=== PATIENT | female | born 1970 | race Caucasian/White ===

== ENCOUNTER 2016-12-31 12:48 | Day surgery (SDC) | payer OTHER ==
[~2016-12-31] VITALS: Ht 152.4 cm; Wt 55.7 kg
[2016-12-31] VITALS (14 sets, daily range): BP systolic 123–163; BP diastolic 59–89; PULSE 82–110; RESP 13–33; Ht 152.4 cm; Wt 55.7 kg
[2016-12-31] MEDS ORDERED: POLYMYXIN/BACITRACIN 1L IRRIG ONE (15:28)
[2016-12-31] MEDS ORDERED: BUPIVACAINE 0.5% (SDV) 30 ML INJ ONE (15:28)
[2016-12-31] MEDS ORDERED: LIDOCAINE 1% (STERILE-PAK) 30 ML INJ ONE (15:28)
--- NOTE | 2016-12-31 16:22 | HPN ---
Date/Time of Note Date/Time of Note DATE: 12/31/16 TIME: 16:22 Interval H&P Admission Note Pt. seen H&P reviewed: No system changes YORDY MADDOX Dec 31, 2016 16:22
[2016-12-31] MEDS ORDERED: ROCURONIUM 50 MG INJ ONE (16:23)
[2016-12-31] MEDS ORDERED: NEOSTIGMINE 3 MG/3 ML SYRINGE ONE (16:23)
[2016-12-31] MEDS ORDERED: CEFAZOLIN 1 GM INJ ONE (16:23)
[2016-12-31] MEDS ORDERED: PROPOFOL 20 ML ONE (16:23)
[2016-12-31] MEDS ORDERED: FENTAnyl 50 MCG/ML VIAL ONE (16:23)
[2016-12-31] MEDS ORDERED: MIDAZOLAM 1 MG/ML 2 ML INJ ONE (16:23)
[2016-12-31] MEDS ORDERED: GLYCOPYRROLATE 0.4 MG INJ ONE (16:23)
[2016-12-31] MEDS ORDERED: ROPIVACAINE 0.5 % 30 ML VIAL ONE (16:24)
[2016-12-31] MEDS ORDERED: ONDANSETRON 4 MG INJ ONE (16:24)
[2016-12-31] MEDS ORDERED: DEXAMETHASONE 4 MG/ML 1 ML INJ ONE (16:24)
[2016-12-31] MEDS ORDERED: PHENYLephrine (100 MCG/ML) 5ML SYG ONE (16:44)
[2016-12-31] MEDS ORDERED: SUGAMMADEX SODIUM 200 MG/2 ML VIAL IV ONE (17:39)
[2016-12-31] MEDS ORDERED: METOCLOPRAMIDE 10 MG INJ ONE (18:12)
--- NOTE | 2016-12-31 18:12 | OPR ---
Date/Time of Note Date/Time of Note DATE: 12/31/16 TIME: 18:04 Operative Report Preoperative Diagnosis left distal radius fracture, intra-articular Postoperative Diagnosis left distal radius fracture, intra-articular swelling within the carpal canal Operation/Procedure Performed open reduction internal fixation of left distal radius fracture, intra-articular left carpal tunnel release, open Surgeon: YORDY MADDOX Anesthesia: general, other Estimated Blood Loss: 0 - 10 ml's Grafts/Implants [employer] distal radius plate and screws Complications: None YORDY MADDOX Dec 31, 2016 18:12
[2016-12-31] MEDS ORDERED: IPRATROPIUM (NEB) 0.5 MG/2.5 ML AMP HHN PRN (18:30)
[2016-12-31] MEDS ORDERED: DIPHENHYDRAMINE 50 MG INJ IV PRN (18:30)
[2016-12-31] MEDS ORDERED: ONDANSETRON 4 MG INJ IV PRN (18:30)
[2016-12-31] MEDS ORDERED: EPHEDrine SULFATE 50 MG/5 ML SYG IV PRN (18:30)
[2016-12-31] MEDS ORDERED: FENTAnyl 50 MCG/ML VIAL IV PRN ×3 (18:30)
[2016-12-31] MEDS ORDERED: hydrALAzine 20 MG INJ IV PRN (18:30)
[2016-12-31] MEDS ORDERED: HYDROmorphONE (0.2 MG/ML) 10ML SYG IV PRN ×3 (18:30)
[2016-12-31] MEDS ORDERED: ALBUTEROL 0.083% (NEB) 2.5 MG/3 ML AMP HHN PRN (18:30)
[2016-12-31] MEDS ORDERED: MIDAZOLAM 1 MG/ML 2 ML INJ IV PRN (18:30)
[2016-12-31] MEDS ORDERED: TRIMETHOBENZAMIDE 100 MG/ML VIAL IM PRN (18:30)
[2016-12-31] MEDS ORDERED: METOCLOPRAMIDE 10 MG INJ IV ONE (18:30)
[2016-12-31] MEDS ORDERED: OXYCODONE/ACETAMINOPHEN (5/325) TAB PO PRN ×2 (18:30)
[2016-12-31] MEDS ORDERED: MEPERIDINE 25 MG INJ IV PRN (18:30)
[2016-12-31] MEDS ORDERED: LABETALOL HCL 20MG INJ IV PRN (18:30)
--- NOTE | 2016-12-31 21:00 | OPR ---
DATE OF OPERATION: 12/31/2016 SURGEON: Dr. Jose Luis Abraham. ANESTHESIA: Peripheral nerve block plus general. PREOPERATIVE DIAGNOSES: 1. Left distal radius fracture, intra-articular, 3 fragments. 2. Left wrist swelling within the carpal canal. POSTOPERATIVE DIAGNOSES: 1. Left distal radius fracture, intra-articular, 3 fragments. 2. Left wrist swelling within the carpal canal. OPERATIVE PROCEDURES: 1. Open reduction, internal fixation of left distal radius fracture, intra-articular, 3 fragments. 2. Left carpal tunnel release, open. OPERATIVE FINDINGS AT SURGERY: Callus formation at the distal radius fracture with dorsal displacement and dorsal tilt. INDICATION FOR PROCEDURE: A 46-year-old female with injury to the left wrist who was seen in clinic and diagnosed with a displaced intra-articular distal radius fracture. Options were discussed with the patient. She elected to proceed with surgical intervention understanding the risks and benefits. OPERATIVE PROCEDURE: The patient was seen in the preoperative area. All her questions were answered. Again, she gave informed consent understanding the risks and benefits. Unfortunately, it did take over a month to get her in the operating room, and due to that I did tell her I anticipate having to mobilize the fracture fragments more extensively and likely use a volar and dorsal approach and also perform a carpal tunnel release. The patient elected to proceed, understanding the risks and benefits. Patient was taken to the operative suite and placed in supine position. A peripheral nerve block was performed at my request for perioperative anesthesia, as well as postoperative pain relief. The patient was placed under general anesthesia and tourniquet placed on left upper extremity. Left upper extremity was prepped with ChloraPrep stick and draped usual sterile fashion. Ancef 2 g given IV. Esmarch bandage was used to exsanguinate the extremity and tourniquet inflated to 250 mmHg. Attention was first turned to the dorsal approach to the distal radius to free up the fracture fragments and sharp dissection carried down through skin and subcutaneous tissue. The EPL tendon sheath was identified and was incised and the EPL tendon retracted. The callus overlying the fracture site, as well as the periosteum was elevated to the radial and ulnar borders of the dorsal distal radius and the fracture was freed up with a Cordova elevator. Attention was then turned proximally and a modified volar Casa approach to the distal radius was utilized with sharp dissection carried down through skin and subcutaneous tissue. The FCR sheath was identified and it was incised along its radial border. The FCR tendon was retracted ulnarly and the FCR sub-sheath incised. The FPL tendon retracted ulnarly and the pronator quadratus was identified and was incised along its radial and distal border. The pronator quadratus was elevated off of the fracture site and distal radius and I used a Cordova elevator to free up the callus formation along the volar, radial and ulnar borders of the fracture site. After I was able to free up the fracture fragment completely I brought in a more anatomic position using traction, as well as a volarly directed force on the dorsal fragment. I was pleased with the reduction and a [employer] distal radius plate was placed across the fracture site on the volar aspect. A cortical screw was placed in the oblong hole and 3 distal row screws were placed. X-ray imaging showed near anatomic alignment and appropriate hardware positioning. Additional locking screws were placed distally and cortical screws proximally. A locking screw was placed in the most proximal hole. Attention was then turned to the carpal tunnel release and a 2 cm incision at the base of the palm was utilized with sharp dissection carried down through subcutaneous tissue, through skin and subcutaneous tissue. The palmar aponeurosis was identified and was incised along its ulnar border. The retractors were deepened and the transverse carpal ligament was identified. The transverse carpal ligament was identified and the ligament was divided along its ulnar border approximately 3 mm radial to the hook of the hamate. Scissor dissection revealed the distal extent of the transverse carpal ligament which was divided under direct visualization. Attention turned proximally and retractor was placed to visualize the transverse carpal ligament which was incised along its ulnar border. After release of the transverse carpal ligament the carpal tunnel contents migrated superficially and there was swelling within the carpal canal. The wound was copiously irrigated and skin closed with 4- 0 nylon. The distal radius, volar and dorsal wounds were also copiously irrigated and skin closed with 4-0 nylon. Xeroform placed over the wounds followed by sterile gauze, Webril, and a short-arm splint. Tourniquet deflated after 60 minutes. The patient was awakened from anesthesia. She was taken to the postop suite in stable condition and tolerated the procedure well with no complication. SPECIMENS: None. ESTIMATED BLOOD LOSS: 5 cc. COUNTS: Sponge, instrument counts correct. TOURNIQUET TIME: 60 minutes. CONDITION ON DISCHARGE: Stable. Dictated By: Jose Luis Abraham MD /[email or web address] /Document#: [id number]
--- NOTE | 2017-01-01 15:14 | RADRPT ---
PROCEDURE: Intraoperative imaging of the left wrist with fluoroscopy. CLINICAL INDICATION: Left wrist pain. Intraoperative. TECHNIQUE: 13 images of the left wrist were obtained in the operating room with an image intensifi er. No radiologist was in attendance. Fluoroscopy time is 28 seconds. COMPARISON: No prior study is available for comparison. FINDINGS: Images demonstrate open reduction and internal fixation of the distal radius with a plate and multip le screws. IMPRESSION: 1. Intraoperative imaging of the left wrist. RPTAT: QQ .Jasiel Haque MD, MD Date Time Electronically viewed and signed by .Jasiel Haque MD, on 01/01/2017 15:13 .R/
== END 2016-12-31 19:48 | disposition home or self-care (01) ==
LOC: SDS 12:48
PROVIDERS: ATTEND Orthopaedic Surgery Hand Surgery
DX: S52.572D Other intraarticular fracture of lower end of left radius, subsequent encounter for closed fracture with routine healing (principal); X58.XXXD Exposure to other specified factors, subsequent encounter; G56.02 Carpal tunnel syndrome, left upper limb
CPT/HCPCS: 25609; 64721; 73110; J0690; J1100; J2250; J2405; J2765; J2795; J3010; Z7512; Z7610; J2370; J2710